=== PATIENT | male | born 1960 | race Caucasian/White ===

== ENCOUNTER 2019-07-10 22:03 | Observation (INO) | payer OTHER, SELFPAY ==
--- NOTE | ~2019-07-10 | CT_ITS ---
EXAMINATION: CT pelvis wo con DATE: 07/11/2019 19:02 INDICATION: Neobladder. Evaluate for bladder leak. TECHNIQUE: Computed tomography (CT) of the pelvis was performed without Rice catheter administration of water-soluble contrast. The dose-length product was 366.60 mGy-cm. COMPARISON: CT dated 07/10/2019 FINDINGS: There is normal retrograde filling of the neobladder which appears patulous. In addition, t here is abnormal extraluminal contrast accumulation outside of the bladder extending superiorly. Cyril tionally, there is some fluid in the pelvic cul-de-sac with dependent contrast material. There are ex tensive bowel surgical change in the right upper and mid abdomen. There is atherosclerosis. Rice catheter present in the neobladder. 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 No osteolytic or osteoblastic lesions. IMPRESSION: 1. Large volume of extravasation of contrast from the neobladder. Exact site of extravasation not jens ntified, although there is a large amount of extraluminal contrast anterior and superior to the bladd er as well as in the pelvic cul-de-sac. Dr. Madison discussed with Dr. Floyd Sepulveda MD at 07/11/2019 19:15 CDT. Reviewed, dictated and finalized at location A. IMPRESSION: 1. Large volume of extravasation of contrast from the neobladder. Exact site of extravasation not identified, although there is a large amount of extraluminal contrast anterior and superior to the bladder as well as in the pelvic cul-de- sac. Dr. Madison discussed with Dr. Floyd Sepulveda MD at 07/11/2019 19:15 CDT.
--- NOTE | ~2019-07-10 | CT_ITS ---
EXAMINATION: CT abdomen pelvis wo con, CT abdomen pelvis w con DATE: 07/10/2019 23:11 (accession [id number]), 07/10/2019 23:54 (accession [id number]) INDICATION: Lower abdominal pain. Urinary retention. TECHNIQUE: Computed tomography (CT) of the abdomen and pelvis was performed without and with 75 cc Om nipaque 350 intravenous contrast. The dose-length product was 440.10 (accession [id number]), 641. 72 (accession [id number]) mGy-cm. Automated exposure control and iterative reconstruction [employer] were employed. COMPARISON: None. FINDINGS: There is a Rice catheter in the bladder. There is free fluid in the pelvis. Fluid extends into the left inguinal canal. Lung bases are unremarkable. Heart size normal. Mild atherosclerosis. There are extensive surgical ch anges in the pelvis with small bowel anastomosis in the right upper abdomen. There are mildly thickened enhancing small bowel loops in the left mid abdomen and pelvis was, suspic ious for enteritis. There is a distal ileal anastomosis with the bowel slightly dilated at this level . Partial obstruction is not excluded. There is a fluid and gas collection anterior to the bladder wh ich appears to be contiguous. This likely represents a neobladder per history given by Dr. Hyde. N o free air. There are several small hypodensities of the liver, most likely benign cysts. The kidneys are within normal limits. The spleen and pancreas are normal. Normal adrenal glands. Mild atherosclerosis withou t aneurysm. No lymphadenopathy. IMPRESSION: 1. Thickened enhancing small bowel loops in the left mid abdomen, suspicious for enteritis. Distal sm all bowel anastomosis noted with mildly dilated small bowel just proximal to the surgical anastomosis line. Cannot exclude partial obstruction. 2: Moderate free fluid in the pelvis, nonspecific. No free air identified. No definite abscess is jens ntified. 3: Rice catheter present in the bladder with surgical changes in the pelvis compatible with neobladd er per clinical history. Reviewed, dictated and finalized at location A. IMPRESSION: 1. Thickened enhancing small bowel loops in the left mid abdomen, suspicious fo r enteritis. Distal small bowel anastomosis noted with mildly dilated small bow el just proximal to the surgical anastomosis line. Cannot exclude partial obstr uction. 2: Moderate free fluid in the pelvis, nonspecific. No free air identified. No d efinite abscess is identified. 3: Rice catheter present in the bladder with surgical changes in the pelvis co mpatible with neobladder per clinical history.
[2019-07-10 22:00] VITALS: BP 122/81; PULSE 64; RESP 20; TEMP 37; O2SAT 100
[2019-07-10 22:37] LABS: Basophils Percent Auto 0.5 % (0.2-1.2); Eosinophils Absolute Auto 0.1 K/mm3 (0-0.3); Hematocrit 42.5 % (42.0-52.0); Hemoglobin 14.2 g/dL (14.0-18.0); Immature Granulocyte Absolute 0.03 K/mm3 (0.00-0.031); Immature Granulocyte Percent A 0.4 % (0-0.5); Lymphocytes Absolute Auto 2.28 K/mm3 (0.9-3.2); Lymphocytes Percent Auto 28.5 % (18.3-44.2); Mean Corpuscular HGB Conc 33.4 g/dl (32-36); Mean Corpuscular Hemoglobin 32.3 pg (26-34); Mean Corpuscular Volume 96.8 fl (80-100); Monocytes Absolute Auto 0.5 K/mm3 (0.1-0.6); Monocytes Percent Auto 6.4 % (2.6-8.5); Neutrophils Absolute Auto 5.1 K/mm3 (1.3-6.7); Neutrophils Percent Auto 63.2 % (45.5-73.1); Platelet Count Result 197 k/mm3 (150-375); Red Blood Count 4.39 M/mm3 (4.6-6.20); Red Cell Distribution Width 12.8 % (11.5-14.5)
[2019-07-10 22:42] LABS: Add Urine Microscopic? YES; Appearance Urine Clear (Clear); Bacteria Urine Trace /hpf; Bilirubin Urine Negative (Negative); Blood Urine 3+ (Negative); Color Urine Yellow (Yellow); Glucose Urine UA Negative (Negative); Ketones Urine Negative (Negative); Leukocyte Esterase Ur Trace LEU/UL (Negative); Mucus Urine Rare /lpf; Nitrate Urine Negative (Negative); Protein Urine 2+ mg/dL (Negative); RBC Urine >75 /hpf (0-2); Specific Grav Ur 1.012 (1.001-1.035); Urobilinogen Urine Negative mg/dL (<2.0); WBC Urine 16-20 /hpf
[2019-07-10 22:46] LABS: Alanine Aminotransferase 26 U/L (4-50); Albumin Level 4.4 g/dL (3.5-5.1); Alkaline Phosphatase 63 U/L (38-126); Aspartate Amino Transferase 28 U/L (17-59); Bilirubin,Total 0.4 mg/dL (0.2-1.3); Blood Urea Nitrogen 27 mg/dL (9-20); Calcium 9.4 mg/dL (8.4-10.2); Carbon Dioxide 28 mmol/L (22-30); Chloride 101 mmol/L (98-107); Estimated Glomerular Filt Rate 42; Glucose 107 mg/dL (75-110); Potassium 3.4 mmol/L (3.4-5.0); Sodium 137 mmol/L (137-145)
[2019-07-10] MEDS: MORPHINE SULFATE 4 MG/ML INJ IV PUSH (23:30)
[2019-07-10 23:31] VITALS: BP 100/69; PULSE 69; RESP 18; TEMP 37.2; O2SAT 100
--- NOTE | 2019-07-10 23:31 | PC.NURSE ---
ASKING MULTIPLE TIMES TO SPEAK WITH EDP. EDP NOTIFIED. EDP IN TO SPEAK WITH PATIENT AND .
[2019-07-11] VITALS (8 sets, daily range): BP systolic 100–133; BP diastolic 64–78; PULSE 75–93; RESP 16–20; TEMP 36.2–37.2; O2SAT 91–100; BMI 26.1
[2019-07-11] MEDS: ONDANSETRON INJ 4 MG/2 ML VIAL IV PUSH ×3 (00:32→14:20)
--- NOTE | 2019-07-11 00:40 | ED.ABDPAIN ---
HPI - Abdominal Pain General Chief Complaint: Urogenital-Male Stated Complaint: urinary retention Source: RN notes reviewed History of Present Illness HPI narrative: Patient presents emergency department from home for urinary retention. Patient states that he is only been able to dribble out small amounts of urine over the past several hours and is noted increasing lower abdominal pain. Patient states the pain is described as cramping in nature. He denies any fevers or chills chest pain shortness of breath nausea vomiting or any other symptoms he does state he has a history of bladder cancer with a neobladder performed by [facility] in 2016 states he has had an issue with this prior before in past requiring Rice placement Related Data Home Medications Medication Instructions Recorded Confirmed aspirin 81 mg tablet,delayed 81 mg PO DAILY 06/18/19 release Allergies Allergy/AdvReac Type Severity Reaction Status Date / Time aprepitant [From Emend] Allergy Severe Anaphylaxis Verified 06/18/19 10:49 fosaprepitant [From Emend] Allergy Severe Anaphylaxis Verified 06/18/19 10:49 [facility] Social History Social History Smoking status: Former smoker Smoking end date: 02/11/10 Alcohol intake: current Exam Narrative: Exam Narrative: APPEARANCE: No acute distress, nontoxic, resting in bed HEENT: Normocephalic, atraumatic, OMM RESPIRATORY: No respiratory distress, clear to auscultation bilaterally with no rhonchi wheezing or rales CARDIOVASCULAR: RRR s murmur ABDOMINAL: Soft, nondistended, diffusely tender to palpation with increased tenderness right lower quadrant left lower quadrant no rebound or guarding MUSCULOSKELETAl: Moves all extremities. No clubbing, cyanosis or edema. NEURO: Awake and alert. Following commands, speech normal, no focal deficits SKIN:: Warm, dry. Normal Color PSYCHIATRIC: Normal affect/mood Course Course Emergency Course: Patient Rice catheter placed with approximately 100 mL of urine out. With patient's continued pain obtain CT abdomen pelvis at this time Patient's and patient very concerned about Rice catheter concerned of urinary retention requesting that I contact the urologist at [facility]. Patient had gone for CT abdomen and pelvis without contrast I did discuss with Dr. Bermudez states secondary to lack of contrast is difficult to tell specifically what his bowel versus bladder and request CT with contrast. I discussed with Dr. Cuellar at [facility]. He agrees with plan for CT scan with contrast and to call back after CT All discussed with Dr. Luu following CT with contrast. At this time showing Rice catheter and neobladder with no retention noted. At this time he believes no further intervention is required more with Rice and bladder Called and discussed with Dr. Arias for surgery presentation work-up discussed CT results. Patient is had only one episode of emesis and at this time does not feel that NG tube is required recommend pain control with abdominal series in a.m. : Discussed Dr. Chairez presentation and work-up. Agrees with admission at this time Patient continues to have abdominal pain after morphine Bentyl and Tylenol given. At this time lactic acid came back at 3.6 I called and updated Dr. Arias about current pain and lactic acid recommends continued hydration at this time Patient's Rice was noted to have some decrease in output over the last 30 minutes it was irrigated noted to have some mucus removed and good flow returned we will continue to monitor patient states cramping has improved after irrigation continues to have some cramping but improvement Vital Signs Vital signs: Vital Signs Temperature 98.6 F 07/10/19 22:00 Pulse Rate 64 07/10/19 22:00 Respiratory Rate 20 07/10/19 22:00 Blood Pressure 122/81 07/10/19 22:00 Pulse Oximetry 100 07/10/19 22:00 Temperature 97.8 F 07/11/19 02:39
[2019-07-11] MEDS: DICYCLOMINE HCL INJ 20 MG/2 ML VIAL IM (00:47)
[2019-07-11] MEDS: SODIUM CHLORIDE 0.9% IV 1,000 ML 999 ML IV CONT ×2 (01:10)
[2019-07-11 01:49] LABS: Lactic Acid Reflex 3.6 mmol/L (0.7-2.1)
[2019-07-11] MEDS: HYDROMORPHONE HCL 1 MG/ML INJ 0.5 MG IV PUSH (02:04)
[2019-07-11] MEDS: SODIUM CHLORIDE 0.9% IV 1,000 ML 125 ML IV CONT ×2 (03:11→19:37)
--- NOTE | 2019-07-11 03:15 | ADMGEN ---
This patient, German Metzger, was admitted to [facility] Surg Room 319-01. Patient/family oriented to hospital policies and general routines including ID bracelet, bed and alarms, visiting hours, pain management, procedures, bathroom and other care routines, personal items, smoking policy, room service/diet, and visiting hours. Valuables list has been completed. Information on how to activate the Rapid Response Team has been discussed. Patient/Family are encouraged to report perceived risks to care and to ask questions if they do not understand what they are told or what they should do.
[2019-07-11 04:35] LABS: Reflex Lactic Acid Yes or No Add Lactic
[2019-07-11] MEDS: MORPHINE SULFATE 4 MG/ML INJ IV PUSH (05:51)
[2019-07-11 06:03] LABS: Basophils Percent Auto 0.3 % (0.2-1.2); Hemoglobin 14.8 g/dL (14.0-18.0); Immature Granulocyte Absolute 0.01 K/mm3 (0.00-0.031); Immature Granulocyte Percent A 0.3 % (0-0.5); Lymphocytes Absolute Auto 0.24 K/mm3 (0.9-3.2); Lymphocytes Percent Auto 6.6 % (18.3-44.2); Mean Corpuscular HGB Conc 32.2 g/dl (32-36); Mean Corpuscular Hemoglobin 32.2 pg (26-34); Mean Platelet Volume 9.1 fl (7.4-10.4); Monocytes Absolute Auto 0.1 K/mm3 (0.1-0.6); Monocytes Percent Auto 3.3 % (2.6-8.5); Neutrophils Absolute Auto 3.3 K/mm3 (1.3-6.7); Neutrophils Percent Auto 89.5 % (45.5-73.1); Platelet Count Result 154 k/mm3 (150-375); Red Cell Distribution Width 12.8 % (11.5-14.5); White Blood Count 3.6 K/mm3 (4.5-10.0)
[2019-07-11 06:24] LABS: Lactic Acid Reflex 2.7 mmol/L (0.7-2.1)
[2019-07-11 06:26] LABS: Blood Urea Nitrogen 24 mg/dL (9-20); Calcium 8.5 mg/dL (8.4-10.2); Carbon Dioxide 19 mmol/L (22-30); Chloride 106 mmol/L (98-107); Estimated CRCL calculation 69 ml/min; Estimated Glomerular Filt Rate > 60; Glucose 119 mg/dL (75-110); Potassium 3.9 mmol/L (3.4-5.0); Sodium 135 mmol/L (137-145)
[2019-07-11] MEDS: HYDROMORPHONE HCL 1 MG/ML INJ IV PUSH ×5 (06:35→23:12)
[2019-07-11 06:58] LABS: Hypochromasia 3+ (NORMAL); Platelet Estimate Adequate (Adequate)
--- NOTE | 2019-07-11 11:25 | PM.CNGS ---
Assessment and Plan Assessment and plan (1) Enteritis: Code(s): K52.9 - Noninfective gastroenteritis and colitis, unspecified Status: Acute Assessment and Plan: cont abx, exam benign, start clears (2) Acute UTI: Code(s): N39.0 - Urinary tract infection, site not specified Status: Acute Assessment and Plan: dillard placed, abx, await urology input (3) Partial small bowel obstruction: Code(s): K56.600 - Partial intestinal obstruction, unspecified as to cause Status: Acute Assessment and Plan: exam benign, will start clears History of Present Illness Consult details Consult date: 07/11/19 Reason for consult: abdominal pain Requesting physician: Flora Chairez DO Narrative: Pt is a 59 y/o M c h/o bladder ca s/p cystectomy and creation of neobladder presenting c 1 d h/o urinary retention and lower abd pain. Pt reports previous episode in past requiring dillard catheterization. Pt found to have enteritis and partial SBO on CT. Pt reports some n/v but that has since resolved. Pt reports BM x 2 yest. Review of Systems Constitutional: Constitutional: Denies anorexia, Denies chills, Reports fatigue, Denies headache(s), Denies malaise, Denies poor appetite, Reports weakness, Denies weight gain and Denies weight loss Eyes: Eyes: Reports no additional eye complaints and Denies loss of vision ENT: Reports Normal hearing present, Denies dysphagia, Denies headache(s), Denies hearing loss and Denies sore throat Cardiovascular: Cardiovascular: Denies chest pain, Denies syncope, Denies irregular heart rhythm, Denies leg edema, Denies palpitations and Denies dyspnea Respiratory: Respiratory: Denies cough and Denies dyspnea Gastrointestinal: Gastrointestinal: Reports abdominal pain, Reports bloating, Denies change in bowel habits, Denies change in stool character, Denies constipation, Denies dysphagia, Denies heartburn, Denies diarrhea, Reports nausea and Reports vomiting Genitourinary: Genitourinary: Reports dysuria, Denies urinary frequency and Reports urinary urgency Comments: urinary retention Musculoskeletal: Musculoskeletal: Denies myalgias, Denies arthralgias and Denies muscle cramps Integumentary/Breasts: Skin/Breast: Denies non-healing lesions and Denies rash Neurologic: Denies syncope, Denies headache(s) and Denies loss of vision Endocrine: Endocrine: Denies change in body appearance and Denies fatigue Hematologic/Lymphatic: Hematologic/Lymphatic: Denies easy bleeding, Denies easy bruising and Denies lymphadenopathy PMFSH Family History Family History Sibling Family history of cardiovascular disease Father Family history of cardiovascular disease Acute myocardial infarction, Onset Age: 64 Mother Diabetes mellitus Family history of malignant neoplasm Family history of arthritis Family history of congestive heart failure Cerebrovascular accident Hypertension Grandparent Cerebrovascular accident Social History Social History Smoking packs per day: 0.5 Smoking cigarettes per day: 10.0 Years smoked: 40 Smoking pack-years: 20.00 Smoking status: Former smoker Tobacco type: cigarettes Smoking end date: 02/11/10 Alcohol intake: current Drinks per week: 2 Substance use: never Gender identity (if verbalized by the patient): Male Spiritual care concerns: No Meds Home Medications and Allergies Home Medications Medication Instructions Recorded Confirmed Type levothyroxine 100 mcg tablet 100 mcg PO DAILY #90 tablet 01/22/19 07/11/19 Rx metoprolol succinate 25 mg 25 mg PO DAILY #90 tablet 05/19/19 07/11/19 Rx tablet,extended release 24 hr aspirin 81 mg tablet,delayed 81 mg PO DAILY 06/18/19 07/11/19 History release Allergies Allergy/AdvReac Type Severity Reaction Status Date / Time aprepitant [From Emend] Allerg
[2019-07-11 14:19] LABS: Lactic Acid Reflex 3.2 mmol/L (0.7-2.1)
--- NOTE | 2019-07-11 15:16 | PM.IMHP ---
H&P: HPI History of Present Illness Chief complaint: Enteritis, rule out partial small bowel Narrative: German Metzger is a 59 year old male with history of bladder cancer in 2016 he was seen at the [facility] and had a surgical procedure to construct noebladder patient to urinate however patient presented emergency department with a complaint urinary retention Rice catheter was placed and urologist been consulted, he also has partial small-bowel obstruction however a he has had 2 BMs yesterday and is seen by general surgery team, currently patient complains abdominal and bladder cramping, ER doctor spoke with urologist at [facility] and reviewed CT scan finding and was recommended to place the Rice and monitor the patient, patient started on Rocephin, pain is controlled with medication, he denies any fever or chills, patient had a similar episode last year he was at the [facility] Rice catheter was placed. Patient will be seen by urologist and further recommendation to follow Review of Systems Review of Systems: All systems reviewed & are unremarkable except as noted in HPI and below PMFSH Family History Family History Sibling Family history of cardiovascular disease Father Family history of cardiovascular disease Acute myocardial infarction, Onset Age: 64 Mother Diabetes mellitus Family history of malignant neoplasm Family history of arthritis Family history of congestive heart failure Cerebrovascular accident Hypertension Grandparent Cerebrovascular accident Social History Social History Smoking packs per day: 0.5 Smoking cigarettes per day: 10.0 Years smoked: 40 Smoking pack-years: 20.00 Smoking status: Former smoker Tobacco type: cigarettes Smoking end date: 02/11/10 Alcohol intake: current Drinks per week: 2 Substance use: never Gender identity (if verbalized by the patient): Male Spiritual care concerns: No Meds Home Medications and Allergies Home Medications Medication Instructions Recorded Confirmed Type levothyroxine 100 mcg tablet 100 mcg PO DAILY #90 tablet 01/22/19 07/11/19 Rx metoprolol succinate 25 mg 25 mg PO DAILY #90 tablet 05/19/19 07/11/19 Rx tablet,extended release 24 hr aspirin 81 mg tablet,delayed 81 mg PO DAILY 06/18/19 07/11/19 History release Allergies Allergy/AdvReac Type Severity Reaction Status Date / Time aprepitant [From Emend] Allergy Severe Anaphylaxis Verified 06/18/19 10:49 fosaprepitant [From Emend] Allergy Severe Anaphylaxis Verified 06/18/19 10:49 Vital Signs Vital Signs - 24 hr 07/10/19 22:00 07/10/19 23:31 07/11/19 00:01 Temperature 98.6 F 98.9 F 98.9 F Pulse Rate 64 69 75 Respiratory Rate 20 18 18 Blood Pressure 122/81 100/69 115/73 Pulse Oximetry 100 100 100 07/11/19 01:36 07/11/19 02:05 07/11/19 02:39 Temperature 98.9 F 97.8 F Pulse Rate 79 80 76 Respiratory Rate 18 19 18 Blood Pressure 118/72 109/65 106/64 Pulse Oximetry 100 100 100 07/11/19 02:45 07/11/19 06:00 07/11/19 14:00 Temperature 97.1 F L 97.3 F L 97.3 F L Pulse Rate 77 78 93 Respiratory Rate 16 18 16 Blood Pressure 100/67 121/73 129/72 Pulse Oximetry 99 95 91 Exam Const: General: no acute distress and uncomfortable HENMT: General nose exam: Normal nares present Eyes: General: appearance normal, both eyes and all related structures Sclera: sclerae normal Neck: Neck: supple Resp: Effort & Inspection: normal respiratory effort Auscultation: clear to auscultation bilaterally Cardio: Rate: regular rate Rhythm: regular rhythm GI: Other: Bowel sounds are faint diffusely tender along lower abdomen Urinary Catheter: Urinary Catheter: urine clear Skin: General skin exam: normal color Neuro: Speech: normal speech Sensory Exam: normal sensation Extrem: General: normal to inspection Psych: Affect: Anxious af
[2019-07-11 17:01] LABS: Reflex Lactic Acid Yes or No Add Lactic
--- NOTE | 2019-07-11 18:18 | WPDURCON ---
Assessment and Plan Assessment and plan (1) Bladder cancer: Code(s): C67.9 - Malignant neoplasm of bladder, unspecified Status: Acute (2) H/O total cystectomy: Code(s): Z90.6 - Acquired absence of other parts of urinary tract Status: Acute (3) Urinary retention: Code(s): R33.9 - Retention of urine, unspecified Status: Acute (4) Abdominal pain: Code(s): R10.9 - Unspecified abdominal pain Status: Acute Assessment and Plan: I reviewed his CT scan myself. I would like to rule out loulou-bladder perforation given his history and free pelvic fluid on previous CT scan. I will order a CT cystogram. He has a normal creatinine and normal electrolytes. This would argue against bladder perforation. He also has a Rice catheter in place which does seem to be draining again arguing against bladder perforation. However he still is noting some abdominal pain. If his CT scan looks suspicious for bladder perforation he will require a higher level of care and transferred to a tertiary referral center as we will be unable to manage such as situation at this hospital. Urology Consult Note HPI Date Seen: 07/11/19 Requesting Physician: Flora Chairez DO Primary Care Provider: Juve Tinajero MD Consult Narrative Narrative: German Metzger is a 59 year old male seen at the request of Dr. Rajwinder Jones. This gentleman has history of bladder cancer. He is status post cystectomy and neobladder done at the [facility] in 2016. He had an issue postoperatively with bladder perforation requiring exploratory laparotomy 2 months postop with repair of his neobladder. This exploratory laparotomy was performed by Dr. Duke at [facility]. He had another issue in 2017 with mucus clogging which required catheterization and intervention. The patient states he is at a friend's house yesterday he was putting off the need to go the bathroom and had a very distended bladder. He then went to the restroom and was unable to urinate he doubled over in pain and called emergency room. He was then transferred to [facility]. A Rice catheter was placed along 100 cc of urine. A noncontrast CT scan was done. They then contacted his oncologist the [facility]. He suggested a CT with contrast. It confirmed the catheter to be within the neobladder. There is also a moderate amount of free fluid noted in the pelvis. He currently has a 14 [place] Rice catheter. I irrigated it myself. It is confirmed on CT to be within the bladder. He irrigates easily. I did not remove and change to a larger caliber catheter as at this one is confirmed to be within the bladder. He is admitted with us diagnosis of enteritis. He has been seen by General surgery. He is on a clear liquid diet. He states his abdominal pain is much improved. However in light of his history I do think a CT cystogram is warranted. Review of Systems Review of Systems: All systems reviewed & are unremarkable except as noted in HPI and below PMFSH Family History Family History Sibling Family history of cardiovascular disease Father Family history of cardiovascular disease Acute myocardial infarction, Onset Age: 64 Mother Diabetes mellitus Family history of malignant neoplasm Family history of arthritis Family history of congestive heart failure Cerebrovascular accident Hypertension Grandparent Cerebrovascular accident Social History Social History Smoking packs per day: 0.5 Smoking cigarettes per day: 10.0 Years smoked: 40 Smoking pack-years: 20.00 Smoking status: Former smoker Tobacco type: cigarettes Smoking end date: 02/11/10 Alcohol intake: current Drinks per week: 2 Substance use: never Gender identity (if verbalized by the patient): Male Spiritual care concerns: No Meds Home Medicatio
[2019-07-11 18:53] LABS: Lactic Acid 3.8 mmol/L (0.7-2.1)
--- NOTE | 2019-07-11 22:16 | PC.NURSE ---
Report was given to Cassia NAVA at [facility].
--- NOTE | 2019-08-04 13:32 | P.TS_ITS ---
Transfer Discharge Sum: Prov Provider Date of admission: 07/11/19 01:32 Primary care physician: Juve Tinajero MD Admitting clinician: Flora Chairez DO Consults: 07/11/19 Consult to Physician Routine Comment: Consulting Provider: Floyd Sepulveda gyro compass tester/MD group to consult: Urology Reason for consultation: Neobladder, Rice catheter, abdominal pain Has provider been notified: Yes 07/11/19 01:34 Consult to Physician Routine Comment: Consulting Provider: Renée Arias Reason for consultation: abd pain r/o partial obstruction Has provider been notified: Yes DS: Admitting Diagnosis Admitting Diagnosis Admitting Diagnosis: Retention of urine, unspecified DS: Discharge Diagnosis Discharge Diagnosis (1) Perforation of bladder: Status: Acute Transfer Discharge Sum: Med Medications Active and Home Medications: Home Medications metoprolol succinate 25 mg tablet,extended release 24 hr 25 mg PO DAILY #90 tablet 05/19/19 [Rx Confirmed 07/11/19] aspirin 81 mg tablet,delayed release 81 mg PO DAILY 06/18/19 [History Confirmed 07/11/19] levothyroxine 112 mcg tablet 112 mcg PO DAILY #90 tablet 07/30/19 [Rx Confirmed 07/30/19] Transfer Discharge Sum: Hosp Hospital Course Hospital course: Narrative: German Metzger is a 59 year old male with history of bladder cancer in 2016 he was seen at the [facility] and had a surgical procedure to construct noebladder patient to urinate however patient presented emergency department with a complaint urinary retention Rice catheter was placed and urologist been consulted, he also has partial small-bowel obstruction however a he has had 2 BMs yesterday and is seen by general surgery team, currently patient complains abdominal and bladder cramping, ER doctor spoke with urologist at [facility] and reviewed CT scan finding and was recommended to place the Rice and monitor the patient, patient started on Rocephin, pain is controlled with medication, he denies any fever or chills, patient had a similar episode last year he was at the [facility] Rice catheter was placed. Patient was seen by urology patient had a pyelogram, suggesting patient has ruptured the bladder recommended transfer the patient to [facility] for further evaluation surgical repair, the urologist arranged for the transferred. Time Spent with Patient Time attestation: Total time spent providing and/or coordinating transfer services: Exam Narrative: Exam Narrative: Patient was transferred later in the day please see the physical exam during the day
== END 2019-07-12 00:51 | disposition short-term general hospital (02) ==
LOC: ANHED 22:26 → ANH3MEDSUR 07-11 02:47
PROVIDERS: Admitting Provider Internal Medicine; Emergency Provider Emergency Medicine; PCP Family Medicine; Visit Provider Family Medicine
DX: N32.89 Other specified disorders of bladder (principal); N39.0 Urinary tract infection, site not specified; R33.9 Retention of urine, unspecified; Z85.51 Personal history of malignant neoplasm of bladder; K56.600 Partial intestinal obstruction, unspecified as to cause; N28.9 Disorder of kidney and ureter, unspecified; Z79.82 Long term (current) use of aspirin; Z87.891 Personal history of nicotine dependence; Z90.6 Acquired absence of other parts of urinary tract; Z79.899 Other long term (current) drug therapy
CPT/HCPCS: 36415; 72192; 74176; 74177; 80048; 80053; 81001; 83605; 85025; 87077; 87086; 87088; 87186; 96361; 96365; 96367; 96372; 96374; 96375; 96376; 99285; G0378; J0131; J0500; J0696; J1170; J2270; J2405; J7030; Q9967

== ENCOUNTER 2020-11-01 00:06 | Day surgery (SDC) | payer OTHER, SELFPAY ==
[2020-10-20 12:36] VITALS: BMI 25.4
[2020-11-01 06:27] VITALS: BP 118/76; PULSE 52; RESP 16; TEMP 36.1; O2SAT 100; BMI 25.6
[2020-11-01] MEDS: LACTATED RINGERS 1,000 ML 150 ML IV CONT (06:34)
--- NOTE | 2020-11-01 07:08 | P.PNAN_ITS ---
Anes - Initial Pre Proc Eval Procedure: Operation Date: 11/01/20 07:30 Proposed Procedures p Screening Colonoscopy - Lauro Napoles MD Date/Time: 11/01/20 07:08 Surgeon: Lauro Napoles MD Pre Op Diagnosis: neoplasm screening Z12.11 Patient Data Age: 60 Gender: M Height: 1.8 m Weight: 83.3 kg Last Vital Signs Temp 97 F L 11/01/20 06:27 Pulse 52 L 11/01/20 06:27 Resp 16 11/01/20 06:27 BP 118/76 11/01/20 06:27 Pulse Ox 100 11/01/20 06:27 Allergies Allergy/AdvReac Type Severity Reaction Status Date / Time aprepitant [From Emend] Allergy Severe Anaphylaxis Verified 11/01/20 06:26 fosaprepitant [From Emend] Allergy Severe Anaphylaxis Verified 11/01/20 06:26 Home Medications Medication Instructions Recorded Confirmed Type levothyroxine 112 mcg tablet 112 mcg PO DAILY #90 tablet 01/05/20 10/20/20 Rx aspirin 325 mg tablet 325 mg PO DAILY 01/29/20 10/20/20 History metoprolol succinate 25 mg 25 mg PO DAILY #90 tablet 05/13/20 10/20/20 Rx tablet,extended release 24 hr Patient hx anesthesia problems: none Family hx anesthesia problems: none PMFSH Past Medical History Medical History (Updated 08/01/20 @ 13:58 by Juve Tinajero MD) Cataract Lymphedema of left leg Perforation of bladder Surgical History Surgical History (Updated 08/01/20 @ 13:59 by Juve Tinajero MD) Hx of cataract surgery Family History Family History Sibling Family history of cardiovascular disease Father Family history of cardiovascular disease Acute myocardial infarction, Onset Age: 64 Mother Diabetes mellitus Family history of malignant neoplasm Family history of arthritis Family history of congestive heart failure Cerebrovascular accident Hypertension Grandparent Cerebrovascular accident Social History Social History Smoking packs per day: 0.5 Smoking cigarettes per day: 10.0 Years smoked: 40 Smoking pack-years: 20.00 Smoking status: Former smoker Tobacco type: cigarettes Smoking end date: 02/11/10 Alcohol intake: never Drinks per week: 2 Substance use: current Substance use type: does not use Living arrangements: with family Gender identity (if verbalized by the patient): Male Spiritual care concerns: No Anes - Eval Final PreProcedure Day of Procedure 11/01/20 07:08 Patient weight: overweight Heart: regular rate and rhythm Lungs: clear to auscultation Airway: Mallampati scale class II Neurological: alert and oriented Last oral intake: >/= 8 hours ASA classification: III Emergent: no Anesthetic plan: proceed Anesthesia type and monitoring: general GIVS and standard monitoring Informed Consent: The patient's anesthetic plan and its attendant risks and benefits were discussed with the patient/family/POA. Questions were solicited and answers provided to the satisfaction of the patient/family/POA.
--- NOTE | 2020-11-01 07:26 | WPDGICN ---
Assessment and Plan Assessment and plan (1) Colon cancer screening: Code(s): Z12.11 - Encounter for screening for malignant neoplasm of colon Status: Acute Assessment and Plan: Patient presents for neoplasia screening of the colon. Colonoscopy will be performed. Further recommendations will be given after endoscopy. Patient appears be at average risk for colon polyps. GI Consult Note Consult date/time: 11/01/20 07:26 HPI: German Metzger is a 60 year old male Presents for screening colonoscopy. Patient's current weight appetite bowel movements are normal. He denies abdominal pain. He has had no bleeding. Family history is noncontributory. Patient's past history is significant for having had a bladder cancer 5 years ago. Patient is felt to be free of disease. Review of Systems Review of Systems: All systems reviewed & are unremarkable except as noted in HPI and below PMFSH Past Medical History Medical History (Updated 08/01/20 @ 13:58 by Juve Tinajero MD) Cataract Lymphedema of left leg Perforation of bladder Surgical History Surgical History (Updated 08/01/20 @ 13:59 by Juve Tinajero MD) Hx of cataract surgery Family History Family History Sibling Family history of cardiovascular disease Father Family history of cardiovascular disease Acute myocardial infarction, Onset Age: 64 Mother Diabetes mellitus Family history of malignant neoplasm Family history of arthritis Family history of congestive heart failure Cerebrovascular accident Hypertension Grandparent Cerebrovascular accident Social History Social History Smoking packs per day: 0.5 Smoking cigarettes per day: 10.0 Years smoked: 40 Smoking pack-years: 20.00 Smoking status: Former smoker Tobacco type: cigarettes Smoking end date: 02/11/10 Alcohol intake: never Drinks per week: 2 Substance use: current Substance use type: does not use Living arrangements: with family Gender identity (if verbalized by the patient): Male Spiritual care concerns: No Meds Home Medications and Allergies Home Medications Medication Instructions Recorded Confirmed Type levothyroxine 112 mcg tablet 112 mcg PO DAILY #90 tablet 01/05/20 10/20/20 Rx aspirin 325 mg tablet 325 mg PO DAILY 01/29/20 10/20/20 History metoprolol succinate 25 mg 25 mg PO DAILY #90 tablet 05/13/20 10/20/20 Rx tablet,extended release 24 hr Allergies Allergy/AdvReac Type Severity Reaction Status Date / Time aprepitant [From Emend] Allergy Severe Anaphylaxis Verified 11/01/20 06:26 fosaprepitant [From Emend] Allergy Severe Anaphylaxis Verified 11/01/20 06:26 Vital Signs Vital Signs - 24 hr 11/01/20 06:27 Temperature 97 F L Pulse Rate 52 L Respiratory Rate 16 Blood Pressure 118/76 Pulse Oximetry 100 Exam Narrative: Physical exam reveals patient be alert. Vital signs stable. HEENT exam is unremarkable. Patient is anicteric. Lungs are clear to auscultation and percussion. Heart is without murmur or extra sounds. Abdominal exam bowel sounds are present soft nontender with no organomegaly. Digital external rectal exam is normal.
[2020-11-01 07:56] VITALS: BP 101/70; PULSE 53; RESP 14; O2SAT 97
[2020-11-01 08:06] VITALS: BP 109/73; PULSE 57; RESP 18; O2SAT 98
[2020-11-01 08:16] VITALS: BP 125/81; PULSE 42; RESP 16; O2SAT 100
== END 2020-11-01 08:24 | disposition home or self-care (01) ==
PROVIDERS: PCP Family Medicine; Visit Provider Internal Medicine Gastroenterology
PROC: 0DJD8ZZ Inspection of Lower Intestinal Tract, Via Natural or Artificial Opening Endoscopic (ICD-10-PCS; CPT 45378; principal; 2020-11-01 07:30)
DX: Z12.11 Encounter for screening for malignant neoplasm of colon (principal); K64.8 Other hemorrhoids; Z87.891 Personal history of nicotine dependence
CPT/HCPCS: 45378; J2001; J2704; J7120

== ENCOUNTER 2022-09-04 09:43 | Outpatient (CLI) | payer OTHER, SELFPAY ==
--- NOTE | ~2022-09-04 | NM_ITS ---
EXAMINATION: NM graciela stress w perfusion DATE: 09/04/2022 12:05 INDICATION: Other forms of dyspnea TECHNIQUE: Rest images were obtained following intravenous administration of 9.6 mCi Tc99m tetrofosmi n (Myoview). The patient was infused intravenously with Lexiscan (Regadenoson). Then, 31.0 mCi Tc99m tetrofosmin (Myoview) was administered intravenously, and stress images were obtained, initially in t he supine position with repeat post stress images obtained in the prone position. Data was reconstruc eden into short axis and horizontal and vertical long axis SPECT images. Gated SPECT images were also obtained. COMPARISON: None. FINDINGS: There is diaphragmatic attenuation artifact with decreased activity along portions of the i nferior wall which is more prominent on the rest than on the stress images and which largely normaliz es on the post stress imaging obtained in prone position. There is a residual small mild perfusion de fect at the apical inferior segment on the prone imaging and could not exclude infarct although this is more likely to represent residual attenuation artifact. There is normal left ventricular chamber size, wall motion and ejection fraction. Left ventricular ejection fraction measures 60%. IMPRESSION: 1. Diaphragmatic attenuation artifact with region of decreased activity along the inferior wall on th e stress and more prominently on the rest images fast majority of which normalizes with prone imaging . The persistent small focus of mild decreased activity at the apical inferior segment on the prone i maging could represent infarct but more likely represents residual small amount of diaphragmatic atte nuation artifact. No reversible ischemia. 2. 2. Left ventricular ejection fraction measuring >70%. Reviewed, dictated and finalized at location A. IMPRESSION: 1. Diaphragmatic attenuation artifact with region of decreased activity along t he inferior wall on the stress and more prominently on the rest images fast khushbu ority of which normalizes with prone imaging. The persistent small focus of mil d decreased activity at the apical inferior segment on the prone imaging could represent infarct but more likely represents residual small amount of diaphragm atic attenuation artifact. No reversible ischemia. 2. 2. Left ventricular ejection fraction measuring >70%.
--- NOTE | 2022-09-04 09:00 | EST_ITS ---
Patient Info Name: German Metzger Age: 64 years : 1960 Gender: Male Ht: 71 in Wt: 180 lbs BSA: 2.03 m2 HR: 62 bpm BP: 125 / 82 mmHg Exam Date: 09/04/2022 10:57 AM Exam Location: [facility] Stress Patient Status: Outpatient Admit Date: 09/04/2022 Staff Ordering Physician: Juve Tinajero MD Attending Provider: Juve Tinajero MD Exercise Technologist: Oly Manuel CT Exercise Physician: Ricci Solis DO Exam Type: CA stress graciela w NM Study Info A regadenoson stress test was performed. Summary 1. 1. Negative lexiscan stress test for ischemic ST changes by ECG criteria. 2. 2. Stable hemodynamics throughout the test. 3. 3. Nuclear scan to follow and will be reported separately. Please correlate with it. 4. 4. Patient informed of the above results. Protocol: Lexiscan Stress ECG Details Stage: REST Duration (min): 0 min : 53 sec HR (bpm): 61 SBP (mmHg): 125 DBP (mmHg): 82 Stage: REST Duration (min): 15 min : 25 sec HR (bpm): 57 SBP (mmHg): 125 DBP (mmHg): 82 Stage: STAGE 1 Duration (min): 1 min : 0 sec HR (bpm): 79 SBP (mmHg): 128 DBP (mmHg): 90 Stage: RECOVERY Duration (min): 1 min : 0 sec HR (bpm): 89 SBP (mmHg): 128 DBP (mmHg): 90 Stage: RECOVERY Duration (min): 2 min : 0 sec HR (bpm): 90 SBP (mmHg): 128 DBP (mmHg): 90 Stage: RECOVERY Duration (min): 2 min : 55 sec HR (bpm): 88 SBP (mmHg): 124 DBP (mmHg): 73 Rest HR: 57 bpm Peak HR: 94 bpm Rest Sys BP: 125 mmHg Peak Sys BP: 128 mmHg Max Pred HR: 146 bpm % Max Pred HR: 64 % Target HR: 124 bpm Max RPP: 12,032 bpm*mmHg Termination Reason: Completed protocol Cardiac Symptoms: Shortness of breath Total Time: 1 min : 0 sec Rest Mulligan BP: 82 mmHg Peak Mulligan BP: 90 mmHg Total Dose: 0.4 mg Resting ECG Sinus rhythm, anteroseptal infarct, age indeterminate. Stress ECG No ST changes. Arrhythmias None. Report Signatures LA
== END 2022-09-04 09:44 | disposition home or self-care (01) ==
PROVIDERS: PCP Family Medicine; Visit Provider Family Medicine
DX: I20.0 Unstable angina (principal); R06.09 Other forms of dyspnea
CPT/HCPCS: 78452; 93017; A9502; J2785